=== PATIENT | male | born 1950 | race Caucasian/White ===

== ENCOUNTER → 2023-07-26 07:08 | Outpatient (REF) | payer MEDICARE, SELFPAY ==
[2023-07-27 19:29] LABS: PSA Total 5.3 ng/mL (0.0-4.0)
== END ==
LOC: REG 07:08
PROVIDERS: ATTENDING PHYSICIAN Surgery; FAMILY PHYSICIAN Family Medicine
DX: R97.20 Elevated prostate specific antigen [PSA] (principal)
CPT/HCPCS: 36415; 84153; 84154

== ENCOUNTER → 2024-01-23 07:44 | Outpatient (REF) | payer MEDICARE, SELFPAY ==
[2024-01-25 01:27] LABS: PSA Total 5.1 ng/mL (0.0-4.0)
== END ==
LOC: REG 07:44
PROVIDERS: ATTENDING PHYSICIAN Surgery; FAMILY PHYSICIAN Family Medicine
DX: R97.20 Elevated prostate specific antigen [PSA] (principal)
CPT/HCPCS: 36415; 84153; 84154

== ENCOUNTER → 2025-01-29 07:03 | Outpatient (REF) | payer MEDICARE, SELFPAY | LOC: REG 07:03 | PROVIDERS: ATTENDING PHYSICIAN Surgery; FAMILY PHYSICIAN Family Medicine | DX: R97.20 Elevated prostate specific antigen [PSA] (principal) | CPT/HCPCS: 36415; 84153; 84154 ==

== ENCOUNTER → 2025-02-17 07:26 | Outpatient (REF) | payer MEDICARE, SELFPAY ==
[2025-02-17 10:01] LABS: Uric Acid 7.6 mg/dl (3.5-8.5)
== END ==
LOC: REG 07:26
PROVIDERS: ATTENDING PHYSICIAN Podiatrist; FAMILY PHYSICIAN Family Medicine
DX: M10.9 Gout, unspecified (principal)
CPT/HCPCS: 36415; 84550

== ENCOUNTER 2025-03-14 15:47 | Emergency (ER) | payer MEDICARE, SELFPAY ==
[2025-03-14 15:49] VITALS: BP 152/87
[2025-03-14 16:20] LABS: Hematocrit 40.8 % (39.0-52.0); Hemoglobin 13.6 g/dL (13.0-18.0); Mean Corp Hgb Conc. 33.3 g/dL (33.0-37.0); Mean Corpuscular Volume 89.5 fL (80.0-94.0); Nucleated Red Blood Cells % 0 % (-); Platelet Count 215 10^3/uL (130-400); Red Cell Dist. Width 14.5 % (11.5-14.5)
[2025-03-14 16:41] LABS: ALT (SGPT) 25 U/L (0-50); AST (SGOT) 25 U/L (17-59); Albumin 4.4 g/dl (3.5-5.0); Alkaline Phosphatase 59 U/L (38-126); Blood Urea Nitrogen 15 mg/dl (9-20); Calcium 9.5 mg/dl (8.4-10.2); Carbon Dioxide 29 mmol/L (22-30); Chloride 100 mmol/L (98-107); Glucose 140 mg/dl (70-99); Potassium 4.5 mmol/L (3.5-5.1); Sodium 135 mmol/L (135-145); Total Protein 7.5 g/dl (6.3-8.2); eGFR > 60.00
--- NOTE | 2025-03-14 17:38 | ED.GENMED ---
History of Present Illness
General
Chief Complaint: Dizziness
Source: patient and spouse
Time Seen by Provider: 03/14/25 17:23
History of Present Illness
History of Present Illness:
74-year-old male who presents to the emergency room for evaluation of intermittent dizziness. Patient had an episode of dizziness earlier today which occurred when he went from sitting to standing. He felt like the room was moving. It lasted for
about 20 seconds and then went away. He had another 2 episodes which prompted them to make a decision to go to urgent care. Currently the patient feels well and at his baseline. He denies any headache. Denies any focal weakness numbness or
tingling. He did not have any associated nausea or vomiting with the episode. Currently he can move his head without any symptoms. Patient denies any new medications. He did have URI symptoms last week.
Phy Exam
Physical Exam
Physical Exam:
General: Awake, Alert, Oriented X3. No acute distress.
Vitals: unremarkable
Head: Atraumatic
Eyes: Pupils equal, EOMI
Throat: Airway intact, no exudates
Neck: Trachea midline
Lungs: Clear and equal b/l
Heart: Regular rate, no murmurs
Abd: Soft, Nontender, No pulsatile mass
Neuro: Cranial nerves intact, muscle strength equal bilaterally, cerebellar exam normal
Skin: Warm, dry, no rash
Extremities: pulses equal b/l, no edema
Course
Orders/Labs/Results
Orders:
Orders
03/14/25 15:55
Electrocardiogram (*1) Urgent
Reason for Study: Vertigo / Dizzy
03/14/25 15:56
EKG- Treatment ONCE
03/14/25 16:06
CMP [Comprehensive Metabolic Panel] Urgent
Complete Blood Count/With Diff Urgent
03/14/25 17:58
CT Head W/o Iv Contrast Urgent
Comment:
Reason For Exam: dizziness,
Abnormal Lab Results
03/14/25
16:06
RBC 4.56 L 10^6/uL
(4.70-6.10)
Immature Gran % 0.6 H %
(0-0.5)
Monocytes % 10.9 H %
(1.7-9.3)
Eosinophils % 6.1 H %
(0-6)
Glucose 140 H mg/dl
(70-99)
Total Bilirubin 2.3 H mg/dl
(0.2-1.3)
03/14/25 16:06
03/14/25 16:06
Vital Signs
Initial and Last Documented VS:
Initial Vital Signs
Temp Pulse Resp BP Pulse Ox
98.2 F 74 16 152/87 98
03/14/25 15:49 03/14/25 15:49 03/14/25 15:49 03/14/25 15:49 03/14/25 15:49
Last Documented Vital Signs
Temp Pulse Resp BP Pulse Ox
98.8 F 87 17 134/75 98
03/14/25 19:33 03/14/25 19:33 03/14/25 19:33 03/14/25 19:33 03/14/25 19:33
MDM/Problems Addressed
Differential Diagnosis Includes:
Labyrinthitis, benign positional vertigo, central vertigo, orthostasis from anemia or dehydration
MDM/Problems Addressed:
Patient presents after couple episodes of dizziness at home. He is hemodynamically stable. He is asymptomatic here. His physical exam is unremarkable. His labs show no acute abnormality. Head CT shows nothing acute. Overall presentation seems
most consistent with benign positional vertigo. Recommend he take meclizine should he have return of symptoms. Follow-up with his primary care provider.
*Radiology
Radiology exam reviewed: radiology read reviewed
*Pulse Oximetry
SaO2: 99
Oxygen Mode of Delivery: Room air
Patient hypoxic: no
*EKG
Interpreted by ED Provider?: Yes
Interpretation: normal
Heart Rate: 67
Rate: normal
Rhythm: sinus
Azle: normal axis
Interval: normal interval
QRS Pattern: normal QRS
Ischemia: no ischemia
*Driveway Sealer Interpretation
Rate: normal
Interpretation: normal
Rhythm: sinus
*Critical Care Note
Total Time (30-74mins, 75-104mins- exclusive of procedures): Not Applicable
ED Attending Note
-
Portions of this chart may have been created with voice recognition software.� Occasional wrong word or��sound alike� substitutions may have occurred due to the inherent limitations of voice recognition software.
Discharge Plan
Departure
Patient Disposition: Home (Routine Discharge)
Date of Disposition: 03/14/25
Time of Disposition: 19:08
Patient with high blood pressure during this ER visit?: Yes
Condition: Good
Discharge Problem:
Benign paroxysmal positional vertigo
Instructions: Vertigo (a type of dizziness), Exercises (maneuvers) for benign paroxysmal positional vertigo
Referrals:
Kentrell Leo MD [Family Provider, Family Practice]
Interventions
Interventions:
*Risk Screen - Suicide Last Done: 03/14/25 15:50
*General Assessment Last Done: 03/14/25 17:26
*Neglect/Abuse Screening Last Done: 03/14/25 15:50
*ED- Fall Risk Assessment Last Done: 03/14/25 17:26
*ED COVID-19 Vaccine History Last Done: 03/14/25 17:26
*ED Influenza Vaccine History Last Done: 03/14/25 17:26
*Nursing Disposition Last Done: 03/14/25 19:33
ED- Neurological Assessment Last Done: 03/14/25 17:26
Discharge Date and Time
Discharge Date/Time: 03/14/25 19:34
Print Language: ROMANIAN
[2025-03-14 19:33] VITALS: BP 134/75
== END 2025-03-14 19:34 | disposition home or self-care (01) ==
LOC: EMR 15:47
PROVIDERS: Emergency Medicine; EMERGENCY PHYSICIAN Emergency Medicine; FAMILY PHYSICIAN Family Medicine
DX: H81.10 Benign paroxysmal vertigo, unspecified ear (principal); R03.0 Elevated blood-pressure reading, without diagnosis of hypertension
CPT/HCPCS: 99284; 70450; 80053; 85025; 93005